=== PATIENT | female | born 1965 | race Caucasian/White ===

== ENCOUNTER 2016-03-19 11:46 | Emergency (ER) | payer SELFPAY ==
--- NOTE | 2016-03-19 12:07 | UCPHY ---
H & P Time Seen by Provider: 03/19/16 12:06 Patient Type: Established HPI/ROS: CHIEF COMPLAINT: Right eye redness, HISTORY OF PRESENT ILLNESS: The patient is a 50-year-old female who presents with right eye redness that began yesterday morning. Yesterday this was associated with a burning pain that is now itchy today. She also woke up with crusty discharge and a mild headache this morning. She denies vision changes. She denies fever, chills, chest pain, shortness of breath, palpitations, vomiting, diarrhea, urinary complaints, lightheadedness. REVIEW OF SYSTEMS: Aside from elements discussed in the HPI, a comprehensive 10-point review of systems was reviewed and is negative. PAST MEDICAL HISTORY: Mastectomy. SOCIAL HISTORY: . Visual Acuity: noted from Nurse's notes. 20/20, 20/20 Focused examination of the right eye. Eyelid: Diffuse eyelid edema with mild erythema. Pupils: 3mm, Round and reactive to light, EOMI Conjunctivae: Diffuse conjunctival injection with sparing of limbus. No discharge. Anterior chamber: Normal, no hyphema or hypopyon Skin: No proptosis, no periorbital erythema or swelling, no vesicles. Extraocular movements are intact. No pain with eye movement. Portions of this note were transcribed by a medical laboratory technicians. I, Dr Sherice Powell , personally performed a history, physical exam, medical decision making, and confirmed the accuracy of the information in the transcribed note. Smoking Status: Former smoker Constitutional: Initial Vital Signs Heart Rate 67 03/19/16 12:17 Respiratory Rate 16 03/19/16 12:17 Blood Pressure 135/103 H 03/19/16 12:17 O2 Sat (%) 96 03/19/16 12:17 O2 Delivery Mode Room Air Allergies/Adverse Reactions: adhesive tape Allergy (Mild, Uncoded 03/19/16 12:19) Rash latex Allergy (Mild, Uncoded 03/19/16 12:19) Rash Home Medications: Medication Instructions Recorded Levothyroxine [Synthroid 88 mcg 88 mcg PO DAILY06 11/08/12 (RX)] Venlafaxine Xr [Effexor Xr] 150 mg PO DAILY 11/08/12 Ofloxacin 0.3% [Ocuflox 0.3%] 1 - 2 drops OP QID #1 opht.btl 03/19/16 Medical Decision Making ED Course/Re-evaluation: 50-year-old female presenting with conjunctival injection, itchiness, crusty discharge this morning. She will be placed on ofloxacin eyedrops. She was instructed not to return to work for 24 hours. Differential Diagnosis: Differential diagnosis for the patient's presenting complaints includes corneal abrasion, conjunctivitis, iritis, hordeolum, chalazion, cellulitis, periorbital cellulitis, glaucoma, and contusion. Departure - Departure Disposition: Home, Routine, Self-Care Clinical Impression: Conjunctivitis Qualifiers: Conjunctivitis type: unspecified Laterality: right Qualifier Code: (H10.9) Unspecified conjunctivitis Condition: Good Instructions: Conjunctivitis (ED) Additional Instructions: Use Ofloxacin drops as instructed. 1 drop every 2-3 hours while awake for the first 24 hours, then 4 times a day while awake for 5 days. I recommend Ibuprofen (Motrin,Advil) or Naproxen Sodium (Aleve) for eye pain and anti-inflammatory effects. You may take either one, but do not take both. Your dose is: Ibuprofen 600mg every 6-8 hours with food. OR Naproxen Sodium (Aleve) 220mg every 12 hours. Follow up with your primary care provider in the next 2-3 days if symptoms are not improving. Return to Urgent Care or the emergency department if you experience serious worsening of condition. Referrals: Elier Aquino MD [Primary Care Provider] - As per Instructions Stand Alone Forms: Work Excuse Prescriptions: Ofloxacin 0.3% [Ocuflox 0.3%] 1 - 2 drops OP QID #1 opht.btl - PQRS PQRS Measurement: Not applicable Report Scribed for: Sherice Powell Report Scribed by: Madhav Camara Date of Report: 03/19/16 Time of Report: 12:07 Physician Review and Approval Statement: 03/19/16 12:22 Portions of this note were transcribed by a medical laboratory technicians. I personally performed a history, physical exam, medical decision making, and confirmed accuracy of information the transcribed note.
[2016-03-19] MEDS ORDERED: PROPARACAINE 0.5% 15 ML OPHT DROP ONE (12:22)
[2016-03-19 12:40] VITALS: BP 135/103; PULSE 67; RESP 16; O2SAT 96
== END 2016-03-19 12:45 | disposition home or self-care (01) ==
LOC: CED 11:46
DX: H10.9 Unspecified conjunctivitis (principal); Z87.891 Personal history of nicotine dependence
CPT/HCPCS: 99214-PO; G0463-PO

== ENCOUNTER → 2016-08-18 | Outpatient (CLI) | payer OTHER | LOC: BMCIMAGING 16:30 | PROVIDERS: ATTEND Internal Medicine | DX: M25.571 Pain in right ankle and joints of right foot (principal) ==

== ENCOUNTER 2017-04-15 13:39 | Emergency (ER) | payer OTHER ==
[2017-04-15] MEDS ORDERED: ASPIRIN 81 MG CHEWABLE TAB PO ONE (13:42)
--- NOTE | 2017-04-15 13:50 | CPEKG ---
Heart Rate: 75 RR Interval: 800 P-R Interval: 152 QRSD Interval: 88 QT Interval: 376 QTC Interval: 420 P [place]: 44 QRS [place]: -2 T Wave [place]: 27 EKG Severity - BORDERLINE ECG - EKG Impression: SINUS RHYTHM EKG Impression: LVH BY VOLTAGE Electronically Signed By: Kade Crump 17-Apr-2017 14:38:18
[2017-04-15 14:02] LABS: PLATELET COUNT 232 10^3/uL (150-400)
[2017-04-15 14:14] VITALS: RESP 16
[2017-04-15] MEDS ORDERED: NS 1,000 ML IV ONE (14:19)
--- NOTE | 2017-04-15 14:26 | EDPHY ---
H & P Stated Complaint: CP L SIDE, L ARM NUMBNESS - Personal History Current Tetanus Diphtheria and Acellular Pertussis (TDAP): Yes Tetanus Vaccine Date: LESS THAN 10 YEARS - Medical/Surgical History Hx Asthma: No Hx Chronic Respiratory Disease: No Hx Diabetes: No Hx Cardiac Disease: No Hx Renal Disease: No Hx Cirrhosis: No Hx Alcoholism: No Hx HIV/AIDS: No Hx Splenectomy or Spleen Trauma: No Other PMH: PCP Xochilt Gan. Tetanus ?NO. Flu vacc . b mastectomy. RADIATION R. HYSTER. CYSTOCELE - Social History Smoking Status: Former smoker Time Seen by Provider: 04/15/17 13:50 HPI/ROS: CHIEF COMPLAINT: Nausea, arm tingling, chest pain HISTORY OF PRESENT ILLNESS: This is a 51-year-old female who reports she thought she was developing the flu 4 days ago. She had intermittent episodes of being hot and then cold associated significant nausea. Check she canceled social plans and went to bed. The next morning the patient reports being in bed most of the day feeling achy and wiped out. She had ongoing nausea. She has also developed numbness in her forearm and left hand, which she states is not that unusual. She does have a history of metastatic breast cancer metastases to the bones. Patient also reports some shoulder pain. Today she presents reporting significant nausea, ongoing episodes of flushing then being cold as well as shaking discomfort. Patient does note that she has had some left lateral sternal discomfort for about a week. She denies palpitations, or fainting. She denies dizziness. She has had no fever or cough. She does report a mild headache. No fever, chills, shortness of breath, palpitations, vomiting, diarrhea, urinary complaints, lightheadedness. REVIEW OF SYSTEMS: Aside from elements discussed in the HPI, a comprehensive 10-point review of systems was reviewed and is negative. PAST MEDICAL HISTORY: Metastatic breast cancer. Patient had undergone a mastectomy with extensive lymph node dissection in the left axilla. She was on tamoxifen type medication until 2010. History of GERD. She has no history of coronary artery disease, hypertension, high cholesterol, diabetes, no family history of early cardiac disease. SOCIAL HISTORY: Nonsmoker. Rare alcohol use. VITAL SIGNS Reviewed by me. GENERAL: Well-developed, well-nourished, resting comfortably in no respiratory distress. HEENT: Atraumatic. Eyes: No icterus, no injection. Mouth: moist mucous membranes. No erythema or lesions. Neck: supple with no adenopathy. LUNGS: Clear to auscultation bilaterally, no wheezes, rhonchi or rales. CHEST: Status post left mastectomy. Mild swelling of the left upper extremity secondary to lymphedema. Cording and scars under the left axilla. CARDIAC: Regular rate and rhythm, no rubs, murmurs or gallops. ABDOMEN: Soft, nontender, nondistended, bowel sounds normal. BACK: No CVA tenderness. EXTREMITIES: No trauma. No edema. Range of motion is normal throughout. NEURO: Alert and oriented, grossly nonfocal. SKIN: Warm and dry, no rash. PSYCHIATRIC: Normal mentation, no agitation. (Sherice Powell) Constitutional: Initial Vital Signs Temperature (C) 36.9 C 04/15/17 13:48 Heart Rate 81 04/15/17 13:48 Respiratory Rate 16 04/15/17 13:48 Blood Pressure 157/106 H 04/15/17 13:48 O2 Sat (%) 95 04/15/17 13:48 O2 Delivery Mode Room Air Allergies/Adverse Reactions: adhesive tape Allergy (Mild, Uncoded 03/19/16 12:19) Rash latex Allergy (Mild, Uncoded 03/19/16 12:19) Rash Home Medications: Medication Instructions Recorded Levothyroxine [Synthroid 88 mcg 88 mcg PO DAILY06 11/08/12 (RX)] Venlafaxine Xr [Effexor Xr] 150 mg PO DAILY 11/08/12 Ondansetron HCl [Zofran] 4 mg PO Q4-6PRN PRN #10 tablet 04/15/17 Medical Decision Making - Diagnostics EKG Interpretation: 12-LEAD EKG: Please see the full report in [facility]. My interpretation: Normal sinus rhythm. No ST or T-wave changes (Sherice Powell) Imaging Results: Imaging Impressions Chest X-Ray 04/15/17 14:16 Impression: No significant radiographic abnormality. Specifically, a source for chest pain is not identified. Abdomen CT 04/15/17 15:12 Impression: 1. No acute findings in the chest, abdomen, or pelvis. 2. Stable small pulmonary nodules since 2012, consistent with a benign etiology. 3. Stable indeterminate sclerosis in the anterior left 3rd rib with no suspicious uptake in the region on the interval bone scan, suggesting a benign etiology. 4. Additional findings as above. Findings discussed with Dr. Serge Lala on 04/15/2017 at 16:20. Chest/Thorax CTA 04/15/17 15:12 Impression: 1. No acute findings in the chest, abdomen, or pelvis. 2. Stable small pulmonary nodules since 2012, consistent with a benign etiology. 3. Stable indeterminate sclerosis in the anterior left 3rd rib with no suspicious uptake in the region on the interval bone scan, suggesting a benign etiology. 4. Additional findings as above. Findings discussed with Dr. Serge Lala on 04/15/2017 at 16:20. ED Course/Re-evaluation: 51-year-old female with history of metastatic breast cancer, off hormonal blockers for the last 6, years, past presenting with constellation of symptoms including nausea, chills, flushing, and vague chest discomfort. Evaluation in the emergency department demonstrates EKG with normal sinus rhythm , normal laboratory evaluation, negative chest x-ray, negative influenza, normal LFTs, normal lipase, normal troponin. Patient's heart score is 1. I held a long discussion with the patient regarding risk of coronary artery disease and need for risk stratification. Patient understands limitations of the emergency department evaluation for chest discomfort and also understands her heart score. She will follow up with her primary care physician for further evaluation as needed. Patient did have a CT scan of the chest and abdomen pelvis to evaluate for pulmonary embolism as well as to evaluate for evidence of metastatic disease. Her care was assumed by Dr. Lala at 3:45 p.m.. The CTs are still pending. (Sherice Powell) [id number]: Patient signed over to me at 3:[address] scans of the angiogram of the chest and abdomen pelvis. The CT scan of the chest does not show any evidence of pulmonary embolism or anything else significant, additionally there are bony Mets that are stable. Additionally the CT abdomen pelvis with IV contrast is unremarkable. No evidence of appendicitis. Urinalysis is also been reviewed is unremarkable. 1741: Re-examination at this time she is resting comfortably she has no chest pain or shortness of breath her nausea is well controlled after Zofran and fluids. Her CT scans have been unremarkable. Vital signs are stable. 2nd troponin is repeating. If the 2nd troponin is negative I will allow her to go home. Return precautions discussed with her. She understands return emergency room if develops chest pain shortness of breath vomiting fever numbness or tingling questions or concerns. I do recommend she follows up with Cardiology on outpatient basis for outpatient stress testing. Return if worse she understands. Work excuse provided. (Serge Lala) Differential Diagnosis: Differential diagnoses for the patient's symptom complex was considered including but not limited to coronary artery disease, GERD, pancreatitis, pulmonary embolism, viral syndrome. (Sherice Powell) - Data Points Laboratory Results: Laboratory Results 04/15/17 13:55 04/15/17 13:55 04/15/17 04/15/17 04/15/17 16:34 14:00 13:55 WBC RBC Hgb Hct MCV MCH MCHC RDW Plt Count MPV Neut % (Auto) Lymph % (Auto) [place] % (Auto) Eos % (Auto) Baso % (Auto) Nucleat RBC Rel Count Absolute Neuts (auto) Absolute Lymphs (auto) Absolute Monos (auto) Absolute Eos (auto) Absolute Basos (auto) Absolute Nucleated RBC Immature Gran % Immature Gran # Sodium Potassium Chloride Carbon Dioxide Anion Gap BUN Creatinine Estimated GFR Glucose Calcium Total Bilirubin 0.4 mg/dL mg/dL (0.1-1.4) Conjugated Bilirubin 0.2 mg/dL mg/dL (0.0-0.5) Unconjugated Bilirubin 0.2 mg/dL mg/dL (0.0-1.1) AST 19 IU/L IU/L (14-46) ALT 30 IU/L IU/L (9-52) Alkaline Phosphatase 95 IU/L IU/L (38-126) Troponin I Total Protein 7.0 g/dL g/dL (6.3-8.2) Albumin 4.2 g/dL g/dL (3.5-5.0) Lipase 86 IU/L IU/L (23-300) Urine Color YELLOW Urine Appearance CLEAR Urine pH 5.5 (5.0-7.5) Ur Specific [place] <= 1.005 (1.002-1.030) Urine Protein NEGATIVE (NEGATIVE) Urine Ketones NEGATIVE (NEGATIVE) Urine Blood NEGATIVE (NEGATIVE) Urine Nitrate NEGATIVE (NEGATIVE) Urine Bilirubin NEGATIVE (NEGATIVE) Urine Urobilinogen 0.2 EU EU (0.2-1.0) Ur Leukocyte Esterase NEGATIVE (NEGATIVE) Urine Glucose NEGATIVE (NEGATIVE) Influenza A,B Rapid NEGATIVE FOR FLU (NEGATIVE) 04/15/17 04/15/17 13:55 13:55 WBC 5.78 10^3/uL 10^3/uL (3.80-9.50) RBC 4.96 10^6/uL 10^6/uL (4.18-5.33) Hgb 14.8 g/dL g/dL (12.6-16.3) Hct 44.1 % % (38.0-47.0) MCV 88.9 fL fL (81.5-99.8) MCH 29.8 pg pg (27.9-34.1) MCHC 33.6 g/dL g/dL (32.4-36.7) RDW 12.3 % % (11.5-15.2) Plt Count 232 10^3/uL 10^3/uL (150-400) MPV 10.4 fL fL (8.7-11.7) Neut % (Auto) 59.7 % % (39.3-74.2) Lymph % (Auto) 29.9 % % (15.0-45.0) [place] % (Auto) 8.1 % % (4.5-13.0) Eos % (Auto) 1.6 % % (0.6-7.6) Baso % (Auto) 0.5 % % (0.3-1.7) Nucleat RBC Rel Count 0.0 % % (0.0-0.2) Absolute Neuts (auto) 3.45 10^3/uL 10^3/uL (1.70-6.50) Absolute Lymphs (auto) 1.73 10^3/uL 10^3/uL (1.00-3.00) Absolute Monos (auto) 0.47 10^3/uL 10^3/uL (0.30-0.80) Absolute Eos (auto) 0.09 10^3/uL 10^3/uL (0.03-0.40) Absolute Basos (auto) 0.03 10^3/uL 10^3/uL (0.02-0.10) Absolute Nucleated RBC 0.00 10^3/uL 10^3/uL (0-0.01) Immature Gran % 0.2 % % (0.0-1.1) Immature Gran # 0.01 10^3/uL 10^3/uL (0.00-0.10) Sodium 142 mEq/L mEq/L (135-145) Potassium 4.3 mEq/L mEq/L (3.5-5.2) Chloride 103 mEq/L mEq/L (97-110) Carbon Dioxide 24 mEq/l mEq/l (22-31) Anion Gap 15 mEq/L mEq/L (8-16) BUN 11 mg/dL mg/dL (7-23) Creatinine 0.7 mg/dL mg/dL (0.6-1.0) Estimated GFR > 60 Glucose 95 mg/dL mg/dL (70-100) Calcium 9.1 mg/dL mg/dL (8.5-10.4) Total Bilirubin Conjugated Bilirubin Unconjugated Bilirubin AST ALT Alkaline Phosphatase Troponin I < 0.012 ng/mL ng/mL (0.000-0.034) Total Protein Albumin Lipase Urine Color Urine Appearance Urine pH Ur Specific [place] Urine Protein Urine Ketones Urine Blood Urine Nitrate Urine Bilirubin Urine Urobilinogen Ur Leukocyte Esterase Urine Glucose Influenza A,B Rapid Medications Given: Discontinued Medications Aspirin (Aspirin) 324 mg PO EDNOW ONE Stop: 04/15/17 13:43 Last Admin: 04/15/17 13:48 Dose: 324 mg Sodium Chloride (Ns) 1,000 mls @ 0 mls/hr IV ONCE ONE; Wide Open PRN Reason: Protocol Stop: 04/15/17 14:20 Last Admin: 04/15/17 14:54 Dose: 1,000 mls Ondansetron HCl (Zofran) 4 mg IVP EDNOW ONE Stop: 04/15/17 16:44 Last Admin: 04/15/17 16:51 Dose: 4 mg Departure - Departure Disposition: Home, Routine, Self-Care Clinical Impression: Nausea Condition: Good Instructions: Acute Nausea and Vomiting (ED) Additional Instructions: 1. Return emergency room if he develops worsening pain shortness of breath vomiting fever questions or concerns. 2. Follow up with her primary care doctor. 3. Follow up with Cardiology 4. Zofran as needed for nausea. Referrals: Esther Ma MD [Primary Care Provider] - As per Instructions Demetri Shoemaker MD [Medical Doctor] - As per Instructions Prescriptions: Ondansetron HCl [Zofran] 4 mg PO Q4-6PRN PRN #10 tablet PRN Reason: Nausea/Vomiting, Use 1st
[2017-04-15 15:08] VITALS: BP 142/91
[2017-04-15] MEDS ORDERED: IOPAMIDOL (ISOVUE 370) 100 ML BTL IV ONE (15:38)
[2017-04-15] MEDS ORDERED: ONDANSETRON 4 MG/2 ML VIAL IVP ONE (16:43)
[2017-04-15 18:34] VITALS: PULSE 68; TEMP 98.1; O2SAT 94
== END 2017-04-15 18:33 | disposition home or self-care (01) ==
LOC: CED 13:39
DX: R11.0 Nausea (principal); E86.9 Volume depletion, unspecified; Z87.891 Personal history of nicotine dependence; Z85.3 Personal history of malignant neoplasm of breast; Z91.040 Latex allergy status
CPT/HCPCS: 71046-PO; 71275-PO; 74177-PO; 80048-PO; 80076-PO; 81003-PO; 83690-PO; 84484-PO; 85025-PO; 87400-PO; 96374; J2405; Q9967

== ENCOUNTER → 2017-07-01 | Outpatient (CLI) | payer OTHER ==
[~2017-07-01] MED LIST: GADOBUTROL 10 ML VIAL IVP ONE
== END ==
LOC: FIMAGING 13:04
PROVIDERS: ATTEND Internal Medicine Hematology & Oncology
DX: C50.012 Malignant neoplasm of nipple and areola, left female breast (principal); C79.31 Secondary malignant neoplasm of brain; C79.51 Secondary malignant neoplasm of bone
CPT/HCPCS: A9585